=== PATIENT | male | born 1980 | race American Indian/Alaskan Native ===

== ENCOUNTER 2017-05-21 18:05 | Emergency (ER) | payer SELFPAY ==
[2017-05-21 18:15] VITALS: BP 129/87
--- NOTE | 2017-05-21 20:51 | Emergency Department Report ---
Abscess Boil HPI - HPI Chief Complaint: Skin/Abscess/Foreign Body Stated Complaint: SWOLLEN CHIN/JAW Time Seen by Provider: 05/21/17 20:36 Duration: 3 Days Location: Head (she has a area of folliculitis with small abscess on the chin. This is associated inside of the lovell line.) Severity: Moderate (patient's pain is 7 out of 10) History: Yes Pain (patient states he was given Keflex at urgent care but was not given anything for pain), No Fever, No Purulent Drainage, No Numbness, No Foreign Body, No Previous History, No Insect Bite Home Medications: Previous Rx's Medication Instructions Recorded Last Taken Type Azithromycin [Zithromax Z-VANESA] 250 mg PO DAILY #6 tablet 03/21/14 Unknown Rx Promethazine /Codeine 5 ml PO Q6H PRN #120 udc 03/21/14 Unknown Rx [Phenergan/Codeine 6.25-10 mg/5 ml] HYDROcodone/APAP 5-325 [[place] 2 each PO Q6H PRN #10 tablet 05/21/17 Unknown Rx 5-325 mg TAB] Ibuprofen [Motrin] 800 mg PO Q8HR PRN #20 tablet 05/21/17 Unknown Rx Allergies/Adverse Reactions: Allergies Allergy/AdvReac Type Severity Reaction Status Date / Time No Known Allergies Allergy Verified 01/23/13 15:04 ED Review of Systems ROS: Stated complaint: SWOLLEN CHIN/JAW Other details as noted in HPI Comment: All other systems reviewed and negative ED Past Medical Hx - Past Medical History Previous Medical History?: Yes Hx Headaches / Migraines: Yes (migraines) Hx Seizures: No Hx Asthma: No (occassional bronchitis) Additional medical history: BRONCHITIS , PNUEMONIA, broken nose, chin abscess - Surgical History Past Surgical History?: Yes Hx Appendectomy: Yes Additional Surgical History: Umbilical hernia repair, Nose surgery - Social History Smoking Status: Current Some Day Smoker Substance Use Type: Alcohol, Marijuana, Prescribed - Medications Home Medications: Home Medications Medication Instructions Recorded Confirmed Last Taken Type Azithromycin [Zithromax Z-VANESA] 250 mg PO DAILY #6 tablet 03/21/14 07/14/14 Unknown Rx Promethazine /Codeine 5 ml PO Q6H PRN #120 udc 03/21/14 07/14/14 Unknown Rx [Phenergan/Codeine 6.25-10 mg/5 ml] HYDROcodone/APAP 5-325 [[place] 2 each PO Q6H PRN #10 tablet 05/21/17 Unknown Rx 5-325 mg TAB] Ibuprofen [Motrin] 800 mg PO Q8HR PRN #20 tablet 05/21/17 Unknown Rx ED Abscess Boil Physical Exam - Exam General: Vital signs noted. No distress. Alert and acting appropriately. Size: 1 cm Exam: Yes Tenderness, Yes Surrounding Cellulites/Erythema, No Fluctuance, No Lymphangitis, No Crepitation, No Heart Murmur, No Normal Neurologic Exam, No Normal Circulation ED Course Vital Signs 05/21/17 18:11 Temperature 98.7 F Pulse Rate 61 Respiratory 20 Rate Blood Pressure 129/87 O2 Sat by Pulse 100 Oximetry Critical care attestation.: If time is entered above; I have spent that time in minutes in the direct care of this critically ill patient, excluding procedure time. ED Medical Decision Making - Medical Decision Making Patient artery has prescription for antibiotics will be started on pain meds ED Disposition Clinical Impression: Abscess Disposition: - TO HOME OR SELFCARE Is pt being admited?: No Does the pt Need Aspirin: No Condition: Stable Instructions: Abscess (ED) Prescriptions: HYDROcodone/APAP 5-325 [[place] 5-325 mg TAB] 2 each PO Q6H PRN #10 tablet PRN Reason: Moderate Pain Ibuprofen [Motrin] 800 mg PO Q8HR PRN #20 tablet PRN Reason: Pain Referrals: JEANMARIE FERRER MD [Primary Care Provider] - 3-5 Days
== END 2017-05-21 21:01 | disposition home or self-care (01) ==
LOC: ED 18:05
DX: M27.2 Inflammatory conditions of jaws (principal); G43.909 Migraine, unspecified, not intractable, without status migrainosus; F17.200 Nicotine dependence, unspecified, uncomplicated; F12.10 Cannabis abuse, uncomplicated
CPT/HCPCS: 99282

== ENCOUNTER 2019-05-30 02:13 | Emergency (ER) | payer SELFPAY ==
[2019-05-30] MEDS ORDERED: LIDOCAINE-MPF (1%) 10 MG/1 ML VIAL 5 ML INFILTRATI ONE (04:45)
[2019-05-30] MEDS ORDERED: AZITHROMYCIN 250 MG TAB PO ONE (04:45)
--- NOTE | 2019-05-30 04:56 | Emergency Department Report ---
ED Male HPI - General Chief complaint: Wound/Laceration Stated complaint: KNOT ABOVE R EAR/SWELLING/PAIN Time Seen by Provider: 05/30/19 04:04 Source: patient Mode of arrival: Ambulatory Limitations: No Limitations - History of Present Illness Initial comments: This is a 38-year-old -[place] male that presents to the emergency room with a painful abscess of right temporal for 2 days. Past medical history of migraines, asthma, and bronchitis. Patient states abscess started draining yesterday and swelling improved but pain is unbearable. Patient denies fever or chills. MD Complaint: penile discharge - Related Data Previous Rx's Medication Instructions Recorded Last Taken Type Azithromycin [Zithromax Z-VANESA] 250 mg PO DAILY #6 tablet 03/21/14 Unknown Rx Promethazine /Codeine 5 ml PO Q6H PRN #120 udc 03/21/14 Unknown Rx [Phenergan/Codeine 6.25-10 mg/5 ml] HYDROcodone/APAP 5-325 [[place] 2 each PO Q6H PRN #10 tablet 05/21/17 Unknown Rx 5-325 mg TAB] Ibuprofen [Motrin] 800 mg PO Q8HR PRN #20 tablet 05/21/17 Unknown Rx Allergies Allergy/AdvReac Type Severity Reaction Status Date / Time No Known Allergies Allergy Verified 01/23/13 15:04 ED Review of Systems ROS: Stated complaint: KNOT ABOVE R EAR/SWELLING/PAIN Other details as noted in HPI ED Past Medical Hx - Past Medical History Previous Medical History?: Yes Hx Headaches / Migraines: Yes (migraines) Hx Seizures: No Hx Asthma: No (occassional bronchitis) Additional medical history: BRONCHITIS , PNUEMONIA, broken nose, chin abscess - Surgical History Hx Appendectomy: Yes Additional Surgical History: Umbilical hernia repair, Nose surgery - Social History Smoking Status: Never Smoker Substance Use Type: None - Medications Home Medications: Home Medications Medication Instructions Recorded Confirmed Last Taken Type Azithromycin [Zithromax Z-VANESA] 250 mg PO DAILY #6 tablet 03/21/14 07/14/14 Unknown Rx Promethazine /Codeine 5 ml PO Q6H PRN #120 udc 03/21/14 07/14/14 Unknown Rx [Phenergan/Codeine 6.25-10 mg/5 ml] HYDROcodone/APAP 5-325 [[place] 2 each PO Q6H PRN #10 tablet 05/21/17 Unknown Rx 5-325 mg TAB] Ibuprofen [Motrin] 800 mg PO Q8HR PRN #20 tablet 05/21/17 Unknown Rx ED Physical Exam - General Limitations: No Limitations ED Course Vital Signs 05/30/19 02:21 Temperature 98.2 F Pulse Rate 65 Respiratory 16 Rate Blood Pressure 125/64 O2 Sat by Pulse 98 Oximetry Critical care attestation.: If time is entered above; I have spent that time in minutes in the direct care of this critically ill patient, excluding procedure time. ED Disposition Condition: Stable Referrals: PRIMARY CARE, [Primary Care Provider] - 3-5 Days
[2019-05-30] MEDS ORDERED: TETANUS,DIPH,PERTUSS(ACELL) VACCINE 0.5 ML SYRINGE IM ONE (04:57)
--- NOTE | 2019-05-30 05:02 | Emergency Department Report ---
- General Chief complaint: Wound/Laceration Stated complaint: KNOT ABOVE R EAR/SWELLING/PAIN Time Seen by Provider: 05/30/19 04:04 Source: patient Mode of arrival: Ambulatory Limitations: No Limitations - History of Present Illness Initial comments: This is a 38-year-old -[place] male that presents to the emergency room with a painful abscess of right temporal for 2 days. Past medical history of migraines, asthma, and bronchitis. Patient states abscess started draining yesterday and swelling improved but pain is unbearable. Patient denies fever or chills. MD complaint: abscess/boil Onset/Timin -: days(s) Tetanus Up to Date: unsure Location: head (Right temporal) Severity: moderate Severity scale (0 -10): 7 Quality: aching Consistency: constant Worsens with: palpation Context: none Associated symptoms: denies other symptoms Treatments Prior to Arrival: other (Warm compresses) - Related Data Previous Rx's Medication Instructions Recorded Last Taken Type Azithromycin [Zithromax Z-VANESA] 250 mg PO DAILY #6 tablet 03/21/14 Unknown Rx Promethazine /Codeine 5 ml PO Q6H PRN #120 udc 03/21/14 Unknown Rx [Phenergan/Codeine 6.25-10 mg/5 ml] HYDROcodone/APAP 5-325 [[place] 2 each PO Q6H PRN #10 tablet 05/21/17 Unknown Rx 5-325 mg TAB] Ibuprofen [Motrin] 800 mg PO Q8HR PRN #20 tablet 05/21/17 Unknown Rx Clindamycin Phosphate [Clindamycin 1 applicatio TP QDAY #1 foam 05/30/19 Unknown Rx 1% TOPICAL FOAM] Clindamycin [Clindamycin CAP] 300 mg PO Q8H #21 cap 05/30/19 Unknown Rx Allergies Allergy/AdvReac Type Severity Reaction Status Date / Time No Known Allergies Allergy Verified 01/23/13 15:04 Abscess Boil HPI - HPI Chief Complaint: Wound/Laceration Stated Complaint: KNOT ABOVE R EAR/SWELLING/PAIN Time Seen by Provider: 05/30/19 04:04 Home Medications: Previous Rx's Medication Instructions Recorded Last Taken Type Azithromycin [Zithromax Z-VANESA] 250 mg PO DAILY #6 tablet 03/21/14 Unknown Rx Promethazine /Codeine 5 ml PO Q6H PRN #120 udc 03/21/14 Unknown Rx [Phenergan/Codeine 6.25-10 mg/5 ml] HYDROcodone/APAP 5-325 [[place] 2 each PO Q6H PRN #10 tablet 05/21/17 Unknown Rx 5-325 mg TAB] Ibuprofen [Motrin] 800 mg PO Q8HR PRN #20 tablet 05/21/17 Unknown Rx Clindamycin Phosphate [Clindamycin 1 applicatio TP QDAY #1 foam 05/30/19 Unknown Rx 1% TOPICAL FOAM] Clindamycin [Clindamycin CAP] 300 mg PO Q8H #21 cap 05/30/19 Unknown Rx Allergies/Adverse Reactions: Allergies Allergy/AdvReac Type Severity Reaction Status Date / Time No Known Allergies Allergy Verified 01/23/13 15:04 ED Review of Systems ROS: Stated complaint: KNOT ABOVE R EAR/SWELLING/PAIN Other details as noted in HPI Constitutional: denies: chills, fever Respiratory: denies: cough, shortness of breath, wheezing Cardiovascular: denies: chest pain, palpitations Gastrointestinal: denies: abdominal pain, nausea, diarrhea Skin: lesions (Painful abscess to right temporal). denies: rash Neurological: denies: headache, weakness, paresthesias Psychiatric: denies: anxiety, depression ED Past Medical Hx - Past Medical History Previous Medical History?: Yes Hx Headaches / Migraines: Yes (migraines) Hx Seizures: No Hx Asthma: No (occassional bronchitis) Additional medical history: BRONCHITIS , PNUEMONIA, broken nose, chin abscess - Surgical History Hx Appendectomy: Yes Additional Surgical History: Umbilical hernia repair, Nose surgery - Social History Smoking Status: Never Smoker Substance Use Type: None - Medications Home Medications: Home Medications Medication Instructions Recorded Confirmed Last Taken Type Azithromycin [Zithromax Z-VANESA] 250 mg PO DAILY #6 tablet 03/21/14 07/14/14 Unknown Rx Promethazine /Codeine 5 ml PO Q6H PRN #120 udc 03/21/14 07/14/14 Unknown Rx [Phenergan/Codeine 6.25-10 mg/5 ml] HYDROcodone/APAP 5-325 [[place] 2 each PO Q6H PRN #10 tablet 05/21/17 Unknown Rx 5-325 mg TAB] Ibuprofen [Motrin] 800 mg PO Q8HR PRN #20 tablet 05/21/17 Unknown Rx Clindamycin Phosphate [Clindamycin 1 applicatio TP QDAY #1 foam 05/30/19 U nknown Rx 1% TOPICAL FOAM] Clindamycin [Clindamycin CAP] 300 mg PO Q8H #21 cap 05/30/19 Unknown Rx ED Physical Exam - General Limitations: No Limitations General appearance: alert, in no apparent distress - Respiratory Respiratory exam: Present: normal lung sounds bilaterally. Absent: respiratory distress - Cardiovascular Cardiovascular Exam: Present: regular rate, normal rhythm. Absent: systolic murmur, diastolic murmur, rubs, gallop - GI/Abdominal GI/Abdominal exam: Present: soft, normal bowel sounds. Absent: distended, tenderness, guarding, rebound, rigid - Extremities Exam Extremities exam: Present: normal inspection - Neurological Exam Neurological exam: Present: alert, oriented X3, normal gait - Psychiatric Psychiatric exam: Present: normal affect, normal mood - Skin Skin exam: Present: warm, dry, intact, normal color, other (1 cm nodule, bloody discharge, TTP). Absent: rash ED Course Vital Signs 05/30/19 02:21 Temperature 98.2 F Pulse Rate 65 Respiratory 16 Rate Blood Pressure 125/64 O2 Sat by Pulse 98 Oximetry ED Medical Decision Making - Medical Decision Making This is a 38 y.o. male that presents with a painful abscess to right temporal for 2 days. No history of prior abscess. Patient is stable and examined by me. Physical assessment of 1 cm nodule to right temporal, tender to palpation. No acute signs of distress noted. I&D is not indicated at this time due to active drainage. Symptoms are consistent with folliculitis. Discussed plan to start oral and topical antibiotics with patient. Follow-up with primary care doctor for reassessment of wound and 3 to 5 days. Patient agrees to ED plan of care. Discharged home stable and given strict return precautions. Critical care attestation.: If time is entered above; I have spent that time in minutes in the direct care of this critically ill patient, excluding procedure time. ED Disposition Clinical Impression: Folliculitis, Abscess of scalp Disposition: - TO HOME OR SELFCARE Is pt being admited?: No Condition: Stable Instructions: Folliculitis (ED) Prescriptions: Clindamycin Phosphate [Clindamycin 1% TOPICAL FOAM] 1 applicatio TP QDAY #1 foam Clindamycin [Clindamycin CAP] 300 mg PO Q8H #21 cap Referrals: [facility] [Outside] - 3-5 Days [facility] [Outside] - 3-5 Days [facility] [Outside] - 3-5 Days Time of Disposition: 05:02
[2019-05-30 06:41] VITALS: BP 120/72
== END 2019-05-30 05:39 | disposition home or self-care (01) ==
LOC: ED 02:13
DX: L02.811 Cutaneous abscess of head [any part, except face] (principal); L73.8 Other specified follicular disorders; G43.909 Migraine, unspecified, not intractable, without status migrainosus; Z98.890 Other specified postprocedural states; Z79.899 Other long term (current) drug therapy
CPT/HCPCS: 90471; 90715; 99282